=== PATIENT | female | born 2005 | race Caucasian/White ===

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

== ENCOUNTER 2023-12-06 10:20 | Outpatient (AMB) | payer SELFPAY ==
--- NOTE | 2023-12-06 10:31 | MHC.OFFWIV ---
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 Started last night Patient Tobacco Use Status: Never used Tobacco Allergies No Known Allergies [No Known Allergies*] Allergy (Verified 12/06/23 10:38) Do you need a note to return to daycare/school/sports/work: Yes HPI MEDICAL LABORATORY MANAGER Sore throat, cough HPI Details This is a 18-year-old female patient who presents to the walk-in clinic today with report of 1 day history of sore throat, dry cough, nasal congestion, nausea. Denies any shortness of breath. Denies fever. Her roommate has similar symptoms currently. Her work is requiring her to get a note for today. [facility] Social History Patient Tobacco Use Status: Never used Tobacco Review of Systems Const All systems reviewed & are unremarkable except as noted in HPI and below Physical Exam Vital Signs: Last Vital Signs Temp 98.1 F 12/06/23 10:35 Pulse 68 12/06/23 10:35 BP 108/84 12/06/23 10:35 Pulse Ox 99 12/06/23 10:35 Oxygen Delivery Method Room Air 12/06/23 10:35 BMI result Body Mass Index 41.8 Const General: cooperative and no acute distress HEENT Head: Yes normal to inspection Ears: hearing grossly normal bilaterally and TM's normal bilaterally General nose exam: Normal external nose present and Nasal discharge present mucoid Face and sinus: Yes normal facial exam Mouth: Normal oral and palatal mucosa present Throat: Yes posterior oropharynx normal Neck Neck: Yes no lymphadenopathy Resp Effort & Inspection: normal respiratory effort Auscultation: clear to auscultation bilaterally Cardio Rate: regular rate Rhythm: regular rhythm Skin General skin exam: no rashes or lesions noted Extrem General: Yes no clubbing, cyanosis or edema Psych Appearance: grossly normal Mental Status: mental status grossly normal Speech and movement: Normal speech and movement present Results AMB Rapid Strep AMB Rapid Strep Negative Last Edit by Herson Beck CMA on 12/06/23 10:53 Assessment & Plan Assessment & Plan (1) Viral upper respiratory infection: Code(s): J06.9 - Acute upper respiratory infection, unspecified Plan: Symptoms are consistent with viral upper respiratory illness. We discussed likely self-limiting nature of symptoms, and conservative measures for at home treatment, including rest, hydration, [id number] cold/flu medication, lozenges for her throat. Rapid strep was negative. COVID/flu/RSV swab was obtained today, and patient is aware she will be notified with results once these are available. All questions were answered and patient verbalizes understanding and agrees to plan. Work note provided. Orders: Orders SARS-CoV2/FLU/RSV Today J06.9 - Acute upper respiratory infection, unspecified AMB Rapid Strep Screen Today Z13.9 - Encounter for screening, unspecified Coding Level of Care Code Est Pt Level 4 (36149) Diagnoses Viral upper respiratory infection J06.9
[2023-12-06 10:35] VITALS: BP 108/84; PULSE 68; TEMP 36.7; O2SAT 99; BMI 41.8
== END 2023-12-06 11:07 | disposition home or self-care (01) ==
PROVIDERS: PCP Pediatrics; Visit Provider Nurse Practitioner Family
DX: Z13.9 Encounter for screening, unspecified (principal); J06.9 Acute upper respiratory infection, unspecified
CPT/HCPCS: 87880; 99214

== ENCOUNTER 2023-12-06 10:52 | Outpatient (REF) | payer OTHER, SELFPAY ==
[2023-12-06 13:56] LABS: Influenza A PCR NEGATIVE (Negative); Influenza B PCR NEGATIVE (Negative); Resp Syncy Virus RNA Qual PCR NEGATIVE (Negative); SARS COV2 PCR INHOUSE NEGATIVE (Negative)
== END 2023-12-06 10:53 | disposition home or self-care (01) ==
LOC: HO.LAB 10:52
PROVIDERS: Visit Provider Nurse Practitioner Family
DX: J06.9 Acute upper respiratory infection, unspecified (principal)
CPT/HCPCS: 0241U

== ENCOUNTER 2023-12-09 08:39 | Outpatient (AMB) | payer SELFPAY ==
[2023-12-09 09:39] VITALS: BP 108/76; PULSE 77; TEMP 36.9; O2SAT 98; BMI 41.8
--- NOTE | 2023-12-09 09:39 | AM.OFFWIN_ITS ---
Intake Vital Signs 12/09/23 09:39 Height 5 ft Weight 214 lb BMI 41.8 BP 108/76 Blood Pressure Location Rt brachial Position Sitting Pulse 77 Pulse Source Pulse Oximeter Temp 98.4 F Temp Source Oral Pulse Oximetry (%) 98 Oxygen Delivery Method Room Air Intake Visit Reasons: EP-coughing, sneezing Intake Note: pt c/o coughing and sneezing. Ongoing since last week. Seen in Walkin. Neg Covid/Flu/Rsv and Neg Strep Patient Tobacco Use Status: Never used Tobacco Allergies No Known Allergies [No Known Allergies*] Allergy (Verified 12/09/23 09:44) Do you need a note to return to daycare/school/sports/work: Yes HPI HPI Comments History of Present Illness Details Patient presents to the walk in for 4 days cough, congestion, sore throat Was seen here with the walk-in 2 days ago for same. Tested negative for flu, COVID, strep Denies fever, chest pain, shortness of breath, palpitations, syncope, weakness Denies headache, ear pain Has not been taking any [id number] medications Requesting work note [facility] Social History Patient Tobacco Use Status: Never used Tobacco Review of Systems Const All systems reviewed & are unremarkable except as noted in HPI and below Physical Exam Vital Signs: Last Vital Signs Temp 98.4 F 12/09/23 09:39 Pulse 77 12/09/23 09:39 BP 108/76 12/09/23 09:39 Pulse Ox 98 12/09/23 09:39 Oxygen Delivery Method Room Air 12/09/23 09:39 BMI result Body Mass Index 41.8 General: awake, alert, oriented. Answers questions appropriately. Fully engaged in examination. Skin: warm, dry, intact HEENT: TMs intact bilaterally, without erythema. Posterior pharynx without erythema or exudate. Sclera without icterus or injection. Cardiac: External chest normal in appearance. Respiratory: +cough. LSCTAB. Abdomen: without gross distension. Neurological: Oriented to person, place, time and situation. Thought process intact. Psychiatric: Appropriate mood and affect. Good judgment and insight. Assessment & Plan Assessment & Plan (1) URI (upper respiratory infection): Code(s): J06.9 - Acute upper respiratory infection, unspecified Plan URI, no abx warranted. Benzonatate 100mg po bid as needed Rest, drink plenty of fluids, tylenol or motrin as needed. Recommend taking OTC nasal decongestants Work note provided Follow up with pcp or in clinic for any new or worsening symptoms. Go to ER for shortness of breath, chest pain, palpitations, weakness, dizziness. Medications: New benzonatate 100 mg PO BID PRN 20 caps 0RF cough Coding Level of Care Code Est Pt Level 3 (24921) Diagnoses URI (upper respiratory infection) J06.9
== END 2023-12-09 10:22 | disposition home or self-care (01) ==
PROVIDERS: PCP Pediatrics; Visit Provider Registered Nurse Emergency
DX: J06.9 Acute upper respiratory infection, unspecified (principal)
CPT/HCPCS: 99213